=== PATIENT | male | born 1980 | race Caucasian/White ===

== ENCOUNTER 2019-05-26 09:21 | Emergency (ER) | payer BC ==
[2019-05-26 09:48] VITALS: BP 150/101
--- NOTE | 2019-05-26 10:27 | UC ---
Complaint Male HPI - HPI Summary HPI Summary: 39 yo male presents with LEFT testicular pain. He tells me that for the last 2 days has had left testicular pain that feels like a dull ache, but is sharp when he touches the area. He also has noticed a small bump at the left testicle that he is unsure if has been there before. He had a vasectomy >5 years ago and has had no issues since. Denies trauma, hematuria, dysuria, or concern for STD today. - History of Current Complaint Chief Complaint: UCGU Stated Complaint: ABD PAIN Time Seen by Provider: 05/26/19 10:01 Onset/Duration: Sudden Onset Severity Initially: Moderate Severity Currently: Moderate Pain Intensity: 5 Pain Scale Used: 0-10 Numeric - Allergies/Home Medications Allergies/Adverse Reactions: Allergies Allergy/AdvReac Type Severity Reaction Status Date / Time No Known Allergies Allergy Verified 05/26/19 09:42 Home Medications: Home Medications Lisinopril/Hydrochlorothiazide [Lisinopril-Hctz 10-12.5 mg Tab] 1 each PO DAILY 05/26/19 [History Confirmed 05/26/19] PMH/Surg Hx/FS Hx/Imm Hx Cardiovascular History: Hypertension - Surgical History Surgical History: Yes Surgery Procedure, Year, and Place: Vasectomy, ~2011 - Family History Known Family History: Positive: None - Social History Occupation: Employed Full-time Lives: With Family Alcohol Use: 2-4 almost daily Substance Use Type: Marijuana Substance Use Comment - Amount & Last Used: Occasionally Smoking Status (MU): Current Every Day Smoker Type: Cigarettes Amount Used/How Often: 1 PPD Length of Time of Smoking/Using Tobacco: Since Age 18 Household Exposure Type: Cigarettes Review of Systems All Other Systems Reviewed And Are Negative: No Constitutional: Positive: Negative Skin: Positive: Negative Respiratory: Positive: Negative Cardiovascular: Positive: Negative Genitourinary: Positive: Other - Testicular pain Neurovascular: Positive: Negative Neurological/Mental Status: Positive: Negative Psychological: Positive: Negative Physical Exam - Summary Physical Exam Summary: GENERAL: NAD. WDWN. No pain distress. SKIN: No rashes, sores, lesions, or open wounds. NECK: Supple. Nontender. No lymphadenopathy. CHEST: CTAB. No r/r/w. No accessory muscle use. Breathing comfortably and in no distress. CV: RRR. Pulses intact. Cap refill <2seconds ABDOMEN: Soft. NTTP. No distention or guarding. No CVA tenderness. Bowel sounds present NEURO: Alert. PSYCH: Age appropriate behavior. Triage Information Reviewed: Yes Vital Signs: Initial Vital Signs Temp 98.6 F 05/26/19 09:38 Pulse 88 05/26/19 09:38 Resp 16 05/26/19 09:38 BP 150/101 05/26/19 09:38 Pulse Ox 99 05/26/19 09:38 Laboratory Tests 05/26/19 10:07 POC Urine Color Yellow POC Urine Clarity Clear POC Urine pH 7.0 POC Ur Specif [place] 1.010 POC Urine Protein Negative POC Ur Glucose (UA) Negative POC Urine Ketones Negative POC Urine Blood Negative POC Urine Nitrite Negative POC Urine Bilirubin Negative POC Urine Urobilinogen 0.2 POC U Leukocyte Esteras Negative Vital Signs Reviewed: Yes Male Genital Exam: Positive: No Hernia, Epididymal Tenderness - LEFT, Testicular Tenderness (L), Other - No inguinal LAD.. Negative: Inguinal Tenderness, Lesions, Scrotum Tenderness (R), Scrotum Tenderness (L), Testicular Tenderness (R), Urethral Discharge Diagnostics - Radiology US testicle Radiology Interpretation Completed By: Radiologist Summary of Radiographic Findings: IMPRESSION: #. Mild LEFT varicocele appears to correspond with the patient's region of pain. Complaint Male Course/Dx - Course Course Of Treatment: UA and US as above. Discussed with pt. Recommend avoiding heavy lifting and strenuous activity. F/u with Urology if symptoms do not improve or if they worsen - Differential Dx/Diagnosis Provider Diagnosis: Varicocele Discharge ED - Sign-Out/Discharge Documenting (check all that apply): Patient Departure All imaging exams completed and their final reports reviewed: Yes - Discharge Plan Condition: Stable Disposition: HOME Patient Education Materials: Varicocele (ED) Referrals: Kathy Menon NP [Primary Care Provider] - Koby Crocker MD [Medical Doctor] - As Soon As Possible Additional Instructions: If you develop a fever, shortness of breath, chest pain, new or worsening symptoms - please call your PCP or go to the ED immediately. Your blood pressure was high at todays visit. Please see your primary provider within 4 weeks for recheck and re-evaluation. Avoid heavy lifting and strenuous activity until feeling better. I recommend you follow up with Urology - Billing Disposition and Condition Condition: STABLE Disposition: Home
[2019-05-27 13:00] LABS: Chlamydia trachomatis NAA Negative (Negative); Neisseria gonorrhoeae (GC) NAA Negative (Negative)
--- NOTE | 2019-05-28 09:56 | UC ---
- Progress Note Progress Note: Gonorrhea and Chlamydia are both negative. If symptoms have persisted recommend follow up with PCP or return to Urgent care Course/Dx - Diagnoses Provider Diagnoses: Varicocele Discharge ED - Sign-Out/Discharge Documenting (check all that apply): Post-Discharge Follow Up All imaging exams completed and their final reports reviewed: Yes - Discharge Plan Condition: Stable Disposition: HOME Patient Education Materials: Varicocele (ED) Referrals: Kathy Menon NP [Primary Care Provider] - Koby Crocker MD [Medical Doctor] - As Soon As Possible Additional Instructions: If you develop a fever, shortness of breath, chest pain, new or worsening symptoms - please call your PCP or go to the ED immediately. Your blood pressure was high at todays visit. Please see your primary provider within 4 weeks for recheck and re-evaluation. Avoid heavy lifting and strenuous activity until feeling better. I recommend you follow up with Urology - Billing Disposition and Condition Condition: STABLE Disposition: Home
== END 2019-05-26 11:35 | disposition home or self-care (01) ==
LOC: UCCORT 09:21
DX: I86.1 Scrotal varices (principal); I10 Essential (primary) hypertension; F17.210 Nicotine dependence, cigarettes, uncomplicated; Z79.899 Other long term (current) drug therapy
CPT/HCPCS: 76870; 81003; 87491; 87591; 99211; G0463